=== PATIENT | male | born 1950 | race Caucasian/White ===

== ENCOUNTER 2021-06-27 07:15 | Emergency (ER) | payer BC, MEDICARE ==
[~2021-06-27] VITALS: Ht 170.2 cm; Wt 76.7 kg
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
--- NOTE | 2021-06-27 07:53 | NUR ---
PAGED [employer]STALL[employer] HELPER TO SPEAK TO PT
[2021-06-27] MEDS ORDERED: SITA100T PO (08:12)
[2021-06-27] MEDS ORDERED: SIMV-49 PO (08:12)
[2021-06-27] MEDS ORDERED: BENA40TA8 PO (08:12)
[2021-06-27] MEDS ORDERED: METO25TA3 PO (08:12)
--- NOTE | 2021-06-27 08:14 | NUR ---
PT SITTING IN BED, NEEDS MET
[2021-06-27 08:17] LABS: BASOPHILS # (AUTO) 0.1 K/uL (0.0-0.2); BASOPHILS % (AUTO) 0.9 % (0.0-2.0); EOSINOPHILS % (AUTO) 0.5 % (0.0-6.0); HEMATOCRIT 41 % (39-51); HEMOGLOBIN 13.9 g/dL (13.5-17.5); LYMPHOCYTES # (AUTO) 1.4 K/uL (0.8-4.8); LYMPHOCYTES % (AUTO) 19.4 % (20.0-44.0); MEAN CORPUSCULAR HGB CONC 33 g/dl (31.0-36.0); MEAN CORPUSCULAR VOLUME 92 fL (80-96); MONOCYTES # (AUTO) 0.5 K/uL (0.1-1.30); MONOCYTES % (AUTO) 7.7 % (2.0-12.0); NEUTROPHILS # (AUTO) 5.1 K/uL (1.8-8.9); NEUTROPHILS % (AUTO) 71.5 % (43.0-81.0); PLATELET COUNT (AUTO) 190 K/uL (150-450); WHITE BLOOD COUNT (AUTO) 7.1 K/uL (4.3-11.0)
[2021-06-27 08:26] LABS: CALCIUM, SERUM 8.9 mg/dL (8.5-10.1); CARBON DIOXIDE 24 mmol/L (21-32); CHLORIDE 103 mmol/L (98-107); CREATININE 1.3 mg/dL (0.6-1.3); GLUCOSE 90 mg/dL (74-106); SODIUM SERUM 139 mmol/L (136-145); UREA NITROGEN, BLOOD 25 mg/dL (7-18)
[2021-06-27 08:37] LABS: ALANINE AMINOTRANSFERASE 20 U/L (12-78); ALBUMIN 3.4 g/dL (3.4-5.0); ALKALINE PHOSPHATASE 74 U/L (46-116); ASPARTATE AMINOTRANSFERASE 20 U/L (15-37); BILIRUBIN,DIRECT 0.2 mg/dL (0.0-0.2); BILIRUBIN,TOTAL 0.7 mg/dL (0.2-1.0); TOTAL PROTEIN, SERUM 6.8 g/dL (6.4-8.2)
[2021-06-27 08:53] LABS: ACETAMINOPHEN < 0 ug/ml (10-30); ALCOHOL, BLOOD < 3 mg/dL (0-0)
--- NOTE | 2021-06-27 09:20 | NUR ---
PT NOT IN ANY DISTRESS. NEEDS MET
[2021-06-27 10:16] LABS: BILIRUBIN,URINE NEGATIVE (NEGATIVE); COLOR,URINE YELLOW (YELLOW); LEUKOCYTE ESTERASE ,URINE NEGATIVE (NEGATIVE); NITRITE, URINE POSITIVE (NEGATIVE); PH,URINE 5.5 (5.0-8.0); PROTEIN,URINE NEGATIVE (NEGATIVE); UGLUCOSE NEGATIVE (NEGATIVE)
[2021-06-27 11:21] LABS: BACTERIA,URINE Few /HPF (None Seen); RBC,URINE 0-2 /HPF (0-2); WBC,URINE 0-2 /HPF (0-3)
[2021-06-27 11:22] LABS: SQUAMOUS EPITHELIAL CELL,UR Rare /HPF (None Seen)
--- NOTE | 2021-06-27 11:34 | NUR ---
ART ON PT'S CASE. LABS GIVEN TO ART
--- NOTE | 2021-06-27 11:39 | NUR ---
PT AMBULATORY WITH ASSIST. ADLS DONE; BT IN RESTROOM AT THIS TIME .
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
--- NOTE | 2021-06-27 13:46 | NUR ---
[facility] CALLED AND TRANSPORT IN 45-60 MIN.
--- NOTE | 2021-06-27 13:52 | NUR ---
REPORT GIVEN TO SHERI OF [facility]
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
[2021-06-27 14:36] VITALS: BP 121/74
--- NOTE | 2021-06-27 14:51 | NUR ---
PICKED UP BY [facility] IN STABLE CONDITION. PATIENT WILL BE TRANSFERRED TO [facility]. ALL BELONGINGS GIVEN TO THE PATIENT.
== END 2021-06-27 14:59 ==
LOC: ER 07:16
DX: F29 Unspecified psychosis not due to a substance or known physiological condition (principal); Z20.822 Contact with and (suspected) exposure to COVID-19; I10 Essential (primary) hypertension; E11.9 Type 2 diabetes mellitus without complications; Z60.2 Problems related to living alone; Z79.899 Other long term (current) drug therapy; Z79.84 Long term (current) use of oral hypoglycemic drugs
CPT/HCPCS: 36415; 80048-TC; 80076-TC; 81001; 85025-TC; 87086-TC; C9803; G0480